=== PATIENT | female | born 1980 | race Caucasian/White ===

== ENCOUNTER → 2020-04-25 | Outpatient (REF) | payer BC ==
[2020-04-25 17:39] LABS: THYROGLOBULIN ANTIBODY 171.5 U/ML (<60.0); THYROID PEROXIDASE ANTIBODY < 28.0 U/ML (<60.0)
== END ==
LOC: M LAB REF 16:23
PROVIDERS: ATTEND Internal Medicine
DX: E03.9 Hypothyroidism, unspecified (principal)

== ENCOUNTER → 2020-06-26 | Outpatient (REF) | payer BC | LOC: M SFHCWAGY 16:56 | PROVIDERS: ATTEND Nurse Practitioner Women's Health | DX: Z12.4 Encounter for screening for malignant neoplasm of cervix (principal) | CPT/HCPCS: 87624; G0123 ==

== ENCOUNTER → 2020-07-08 | Outpatient (CLI) | payer BC ==
--- NOTE | 2020-07-08 17:15 | REPMRS ---
Patient History The patient states she had a clinical breast exam in 05/2020 Baseline Mammogram Patient is nulliparous. No known family history of cancer. 3D TOMOSYNTHESIS WAS PERFORMED. [facility] lifetime risk for breast cancer is 13.8%. Volpara breast density b. Digital Woman Screen Mammo: July 08, 2020 - Exam #: [id number] Bilateral CC and MLO view(s) were taken. Technologist: Sandra Blancas, Technologist No prior studies available for comparison. FINDINGS: There are scattered fibroglandular densities. There is a mild amount of residual fibroglandular tissue which is fairly symmetric. There is no dominant mass, architectural distortion, or clustered microcalcification suggestive of malignancy. Assessment: BI-RADS/ACR category 1 mammogram. Negative Mammogram. Recommendation Routine screening mammogram in 1 year (for women over age 40). This mammogram was interpreted with the aid of an FDA-approved computer-aided dectection system. Electronically Signed By: Moody Haywood MD 07/08/20 1125
== END ==
LOC: M WHC 16:06
PROVIDERS: ATTEND Nurse Practitioner Women's Health
DX: Z12.31 Encounter for screening mammogram for malignant neoplasm of breast (principal)

== ENCOUNTER → 2022-05-20 | Outpatient (REF) | payer BC | LOC: M SFHCWAGY 17:06 | PROVIDERS: ATTEND Nurse Practitioner Family | DX: Z12.4 Encounter for screening for malignant neoplasm of cervix (principal) | CPT/HCPCS: 87624; G0123 ==

== ENCOUNTER → 2022-05-20 | Outpatient (CLI) | payer BC | LOC: M WHC 13:00 | PROVIDERS: ATTEND Nurse Practitioner Family | DX: Z12.31 Encounter for screening mammogram for malignant neoplasm of breast (principal); N63.41 Unspecified lump in right breast, subareolar ==

== ENCOUNTER → 2022-06-24 | Outpatient (CLI) | payer BC | LOC: M WHC 15:29 | PROVIDERS: ATTEND Nurse Practitioner Family | DX: N63.41 Unspecified lump in right breast, subareolar (principal) ==

== ENCOUNTER → 2023-01-12 | Outpatient (CLI) | payer BC | LOC: M WHC 14:25 | PROVIDERS: ATTEND Surgery | DX: R92.8 Other abnormal and inconclusive findings on diagnostic imaging of breast (principal) | CPT/HCPCS: 76642; 77065; G0279 ==